=== PATIENT | male | born 1940 | race Caucasian/White ===

== ENCOUNTER 2023-01-09 04:42 | Inpatient (IN) | payer OTHER ==
[2023-01-09] VITALS (11 sets, daily range): BP systolic 78–108
[~2023-01-09] VITALS: Ht 182.9 cm; Wt 88.0 kg
--- NOTE | 2023-01-09 04:42 | NUR ---
Patient triaged and placed in ER bed 2 for evaluation. Vital signs updated, denied any acute distress at this time. Report given to ACOSTA CALLAHAN for continuity of care. Instructed to notify ED staff for any changes in condition or worsening of symptoms. Patient verbalized understanding.
--- NOTE | 2023-01-09 04:45 | NUR ---
FIRST CONTACT WITH PT. ASSESSMENT COMPLETED. AWAITING ADDITIONAL EVAL AND ORDERS.
--- NOTE | 2023-01-09 04:48 | NUR ---
ER at bedside examining patient.
[2023-01-09] MEDS ORDERED: PIPERACILLIN/TAZO 3.375 GM in NS 50 ML IV ONE (05:00)
[2023-01-09] MEDS ORDERED: ONDANSETRON HCL 4 MG/2 ML VIAL IVP ONE ×2 (05:00→05:45)
[2023-01-09] MEDS ORDERED: VANCOMYCIN HCL 1,000 MG in NS 250 ML IV ONE (05:00)
[2023-01-09] MEDS ORDERED: NACL 0.9% 2,500 ML IV ONE (05:00)
--- NOTE | 2023-01-09 05:12 | NUR ---
# 18 gauge angiocath placed to LAC. Use of asceptic technique. Opsite placed over site. Blood return noted. Blood for lab drawn from site. Flushed with 10 cc of normal saline. No evidence of infiltration noted. Patient tolerated well.
[2023-01-09 05:29] LABS: HEMOGLOBIN 13.3 g/dL (14.0-18.0); MEAN CORPUSCULAR HEMOGLOBIN 31 pg (27-31); MEAN CORPUSCULAR HGB CONC 33 % (32-36); MEAN CORPUSCULAR VOLUME 96 fL (79.0-98.0); PLATELET COUNT (AUTO) 193 K/uL (130-430); RED BLOOD CELL COUNT(AUTO) 4.28 MIL/uL (4.2-6.2); RED CELL DISTRIBUTION WIDTH 14.4 % (9.0-15.0)
[2023-01-09 05:39] LABS: ANION GAP 15 (5-15); CALCIUM 8.3 mg/dL (8.4-11.0); CHLORIDE 102 mmol/L (98-107); CREATININE 1.49 mg/dL (0.55-1.30); GLUCOSE 129 mg/dL (70-99); UREA NITROGEN, BLOOD 22 mg/dL (8-21)
[2023-01-09] MEDS ORDERED: METOCLOPRAMIDE HCL 10 MG/2 ML VIAL IVP ONE (05:45)
[2023-01-09 05:54] LABS: WHITE BLOOD COUNT (AUTO) 40.6 K/uL (4.8-10.8)
[2023-01-09 05:56] LABS: ALANINE AMINOTRANSFERASE 10 U/L (12-78); ALBUMIN 2.3 g/dL (3.4-4.8); ASPARTATE AMINOTRANSFERASE 16 U/L (10-37); LIPASE 46 U/L (73-393); TOTAL BILIRUBIN 0.9 mg/dL (0.0-1.0)
--- NOTE | 2023-01-09 06:05 | NUR ---
PT'S SON AT BEDSIDE. MD DISCUSSED CASE AND PLAN OF CARE. SON STATED HE WOULD HAVE CAREGIVER BRING LIST OF MEDICATION TO HOSPITAL BECAUSE HE DIDN'T KNOW CURRENT MEDS.
--- NOTE | 2023-01-09 06:07 | NUR ---
Patient is back from CT.
[2023-01-09] MEDS ORDERED: VANCOMYCIN HCL 1000 MG/VIAL IV ONE (06:08)
[2023-01-09] MEDS ORDERED: PIPERACILLIN/TAZOBACTAM 3.375 GM/VIAL (ZOSYN) IV ONE (06:09)
--- NOTE | 2023-01-09 06:16 | NUR ---
Dr. Nielsen is at bedside examining the patient.
[2023-01-09 06:46] LABS: BILIRUBIN,URINE 1+ (NEGATIVE); BLOOD, URINE 3+ (NEGATIVE); CLARITY/URINE CLOUDY (CLEAR); COLOR,URINE BROWN (YELLOW); GLUCOSE,URINE NEGATIVE (NEGATIVE); KETONES,URINE TRACE (NEGATIVE); LEUKOCYTE ESTERASE ,URINE 2+ (NEGATIVE); NITRITE, URINE POSITIVE (NEGATIVE); PH,URINE 5.5 (5.0-8.0); PROTEIN URINE 2+ (NEGATIVE)
--- NOTE | 2023-01-09 07:00 | NUR ---
ASSIGNMENT AND REPORT TO SINDY ZELAYA.
[2023-01-09 07:15] LABS: BACTERIA,URINE MANY /HPF (None Seen); MUCUS,URINE 1+ /LPF (None Seen); RBC,URINE >100 /HPF (0-3)
[2023-01-09 07:24] LABS: BAND % (MANUAL) 12 % (0-6); BASOPHILS % (MANUAL) 0 % (0-2); EOSINOPHILS % (MANUAL) 0 % (0-7); LYMPHOCYTES % (MANUAL) 8 % (20-46); MONOCYTES % (MANUAL) 13 % (0-11)
[2023-01-09] MEDS ORDERED: ACET325T53 PO (07:24)
[2023-01-09] MEDS ORDERED: CHOL100062 PO (07:24)
[2023-01-09] MEDS ORDERED: [UNRECOGNIZED DRUG - CODE] PO (07:24)
[2023-01-09] MEDS ORDERED: ALLO100T PO (07:24)
[2023-01-09] MEDS ORDERED: ATOR20TA64 PO (07:24)
[2023-01-09] MEDS ORDERED: SPIR25TA6 PO (07:24)
[2023-01-09] MEDS ORDERED: RIVA20TA PO (07:24)
[2023-01-09] MEDS ORDERED: TAMS-11 PO (07:24)
[2023-01-09] MEDS ORDERED: DOCU-159 PO (07:24)
[2023-01-09] MEDS ORDERED: ZINC50TA2 PO (07:24)
[2023-01-09] MEDS ORDERED: SERT25TA77 PO (07:24)
[2023-01-09] MEDS ORDERED: ACET-1172 PO (07:24)
[2023-01-09] MEDS ORDERED: DIPH50CA38 PO (07:24)
[2023-01-09] MEDS ORDERED: POTA-178 PO (07:24)
[2023-01-09] MEDS ORDERED: FURO20TA4 PO (07:24)
[2023-01-09] MEDS ORDERED: NACL 0.9% 1,000 ML IV ONE ×3 (07:30→19:30)
--- NOTE | 2023-01-09 07:32 | NUR ---
COVID AND INFLUENZA SWABS SENT TO LAB.
[2023-01-09] MEDS ORDERED: METOPROLOL TARTRATE 5 MG/5 ML VIAL IVP ONE (08:00)
--- NOTE | 2023-01-09 08:40 | NUR ---
ATTEMPTED TO PROVIDE PATIENT WATER, ABLE TO SIP, SECOND SIP, PRODUCTIVE COUGH. MD GARCIA MADE AWARE. PT MADE NPO PENDING SWALLOW EVAL.
--- NOTE | 2023-01-09 09:29 | NUR ---
DR. URBINA HAS BEEN PAGED FOR THE PAST TWO HOURS IN REGARDS FOR ADMISSION AND NO RESPONSE. PER DR. GARCIA, PAGE TOP BOTTOM ATTACHING MACHINE OPERATOR DOC FOR ADMISSION DUE TO DELAY OF CARE.
--- NOTE | 2023-01-09 09:42 | NUR ---
Admit bed requested Patient will be admitted to care of Dr. Rudy WHITTAKER. Admitted to TELEMETRY unit. Diagnosis SEPSIS, PNA, UTI Inpatient (Yes or No) YES Observation (Yes or No) NO Orientation concerns or request close to nursing station (Yes or No) NO Covid Status NEGATIVE On vent or bipap NO Isolation requirements NO Needs a sitter NO From Home (Yes or if No enter name of facility) YES Requires Dialysis (Yes or No) NO Med Rec Completed (Yes of No) YES
[2023-01-09] MEDS ORDERED: NS 500 ML IV ONE (09:45)
[2023-01-09] MEDS ORDERED: NALOXONE HCL 0.4 MG/ML AMP (NARCAN) IVP PRN ×2 (10:00)
[2023-01-09] MEDS ORDERED: MUPIROCIN 2% TOPICAL OINTMENT 22 GM NS PRN (10:00)
[2023-01-09] MEDS ORDERED: ZOLPIDEM TARTRATE 5 MG TABLET PO PRN (10:00)
[2023-01-09] MEDS ORDERED: POTASSIUM CHLORIDE 20 MEQ TAB.PRT.SR PO PRN (10:00)
[2023-01-09] MEDS ORDERED: ONDANSETRON HCL 4 MG/2 ML VIAL IVP PRN (10:00)
[2023-01-09] MEDS ORDERED: MORPHINE 2 MG/ML INJ. SYRINGE IVP PRN ×2 (10:00)
[2023-01-09] MEDS ORDERED: DOCUSATE SODIUM 100 MG CAPSULE PO PRN (10:00)
[2023-01-09] MEDS ORDERED: IPRATROPIUM/ALBUTEROL SULFATE 3 ML AMPUL.NEB (DUONEB) INH PRN (10:00)
[2023-01-09] MEDS ORDERED: MAGNESIUM SULFATE 50 ML IV PRN (10:00)
[2023-01-09] MEDS ORDERED: ACETAMINOPHEN 325 MG TABLET PO PRN ×2 (10:00→10:15)
[2023-01-09] MEDS ORDERED: LORazepam 2 MG/ML VIAL IVP PRN (10:00)
[2023-01-09] MEDS: NACL 0.9% 1,000 ML IV SCH ×3 (10:50→20:35)
--- NOTE | 2023-01-09 11:28 | NUR ---
Per family, pt's status is DNR.
--- NOTE | 2023-01-09 12:09 | NUR ---
Patient was transfered to Telemetry unit, room 102A. Son accompanied Patient to room in MST unit. Patient in stable condition. Moved to bed with 3 person assist. Oxygen at 4 lpm via NC. Report given to SINDY Carrillo.
--- NOTE | 2023-01-09 12:15 | NUR ---
admission notes: received pt from e.r. with diagnosis of Sepsis, cc were Hypotension and n/vomiting. pt will be admitted under d Sing. consults were dr yung and dr ace. pt educated on the use of calllight , tv and bed controls. will cont to monitor.
--- NOTE | 2023-01-09 12:30 | NUR ---
pt kept npo pending swallow eval.
[2023-01-09] MEDS: PIPERACILLIN/TAZO 3.375/DEX-IS 50 ML IV SCH ×2 (12:50→18:32)
--- NOTE | 2023-01-09 13:15 | NUR ---
CONSULTATION PAGED REASON FOR CONSULTATION: SEPSIS WAS CONSULT CALLED? Y PERSON WHO WAS NOTIFIED: JANET CONSULTING PHYSICIAN: KARLA MAURICE UTILITY GELATIN MAKER SPECIALTY: CARDIO UTILITY GELATIN MAKER PHONE NUMBER: [phone] REQUESTING PHYSICIAN: DR.SINGHLOLIS
--- NOTE | 2023-01-09 13:34 | NUR ---
CONSULTATION PAGED REASON FOR CONSULTATION: SEPSIS WAS CONSULT CALLED? Y PERSON WHO WAS NOTIFIED: HARPAL CONSULTING PHYSICIAN: LABORER WRECKING AND SALVAGING MUD TRUCKER SPECIALTY: PULMONARY MUD TRUCKER PHONE NUMBER: [phone] [facility]ICIAN[facility]
--- NOTE | 2023-01-09 16:42 | NUR ---
PT'S BP LOW AT 83/51, 89/64 HR 103, REPORTED BP TO DR MOREAU, NEW ORDERS RECEIVED
[2023-01-09] MEDS ORDERED: ALBUMIN HUMAN 25% 100 ML IV ONE (16:45)
--- NOTE | 2023-01-09 17:09 | NUR ---
ST EVALUATION COMPLETED. ST TX NOT INDICATED AT THIS TIME. RECOMMEND PO DIET OF PUREE/NECTAR THICK LIQUIDS. 1:1 FEEDER AND FULL ASPIRATION PRECAUTIONS.
--- NOTE | 2023-01-09 18:44 | NUR ---
pt's bp still low at 89/64 hr 112
--- NOTE | 2023-01-09 18:47 | NUR ---
PT'S SBP IS 94 AT THIS TIME. WILL ENDORSED TO NIGHT NURSE.
--- NOTE | 2023-01-09 19:30 | NUR ---
OPENING NOTE/LOW BP Pt is lying in bed, eyes closed. Breathing unlabored. Pt's initial BP on assessment 78/46, 78/51. Dr Alcocer at bedside, ordered 1L NS bolus, patterson catheter insertion and transfer to ICU. Dr Alcocer called and informed pt's son
--- NOTE | 2023-01-09 19:40 | NUR ---
CODE STATUS Pt code status is now DNR. Code status form signed by Dr Alcocer and RN, placed in pt's chart
--- NOTE | 2023-01-09 19:54 | NUR ---
SPOKE W/ DR WHITTAKER Informed of order to transfer to ICU per Dr Alcocer. No new orders received.
--- NOTE | 2023-01-09 20:00 | NUR ---
PATTERSON CATHETER INSERTION #16 FR patterson catheter inserted with use of sterile technique. Immediate return of blood tinged urine noted. Bedside drainage bag placed below level of bladder.
[2023-01-09 20:18] LABS: HEMATOCRIT 36.2 % (36-54); HEMOGLOBIN 11.7 g/dL (14.0-18.0); MEAN CORPUSCULAR HEMOGLOBIN 31 pg (27-31); MEAN CORPUSCULAR HGB CONC 32 % (32-36); MEAN CORPUSCULAR VOLUME 97 fL (79.0-98.0); PLATELET COUNT (AUTO) 145 K/uL (130-430); RED BLOOD CELL COUNT(AUTO) 3.75 MIL/uL (4.2-6.2); RED CELL DISTRIBUTION WIDTH 14.5 % (9.0-15.0)
[2023-01-09 20:21] LABS: WHITE BLOOD COUNT (AUTO) 25.3 K/uL (4.8-10.8)
[2023-01-09 20:29] LABS: INR 1.2 (0.80-1.20); PROTHROMBIN TIME 12.6 SECS (9.5-12.5)
[2023-01-09 20:30] LABS: ANION GAP 9 (5-15); CALCIUM 7.5 mg/dL (8.4-11.0); CHLORIDE 107 mmol/L (98-107); CREATININE 1.22 mg/dL (0.55-1.30); GLUCOSE 99 mg/dL (70-99); UREA NITROGEN, BLOOD 22 mg/dL (8-21)
[2023-01-09 20:38] LABS: BAND % (MANUAL) 4 % (0-6); BASOPHILS % (MANUAL) 0 % (0-2); EOSINOPHILS % (MANUAL) 0 % (0-7); LYMPHOCYTES % (MANUAL) 8 % (20-46); MONOCYTES % (MANUAL) 16 % (0-11)
[2023-01-09 20:42] LABS: ALANINE AMINOTRANSFERASE 10 U/L (12-78); ALBUMIN 2.4 g/dL (3.4-4.8); AMYLASE 22 U/L (0-100); ASPARTATE AMINOTRANSFERASE 14 U/L (10-37); CHOLESTEROL 50 mg/dL (<200); FREE T4 (FREE THYROXINE) 0.8 ng/dL (0.6-1.6); HDL CHOLESTEROL 39 mg/dL (>45); LIPASE 32 U/L (73-393); THYROID STIMULATING HORMONE 1.95 uIu/mL (0.34-4.82); TOTAL BILIRUBIN 0.7 mg/dL (0.0-1.0); TRIGLYCERIDES 35 mg/dL (30-150)
--- NOTE | 2023-01-09 20:50 | NUR ---
TRANSFER TO ICU Pt was transfered to ICU. BP 92/50. Report given to MAINTENANCE OPERATOR
--- NOTE | 2023-01-09 21:00 | NUR ---
Received patient transferred from [facility] after Dr Alcocer ordered patient to be transferred to ICU. Patient is DNR, received via bed after patient became hypotensive and with orders to start Levophed. Patient's SBP 82. O2 sats in 5L NC 92%. will continue to monitor.
[2023-01-09] MEDS: LINEZOLID 300 ML IV SCH (22:49)
[2023-01-10] VITALS (20 sets, daily range): BP systolic 84–144
[2023-01-10] MEDS: PIPERACILLIN/TAZO 3.375/DEX-IS 50 ML IV SCH ×5 (00:27→23:36)
[2023-01-10 05:24] LABS: ANION GAP 10 (5-15); CALCIUM 7.5 mg/dL (8.4-11.0); CHLORIDE 107 mmol/L (98-107); CREATININE 1.05 mg/dL (0.55-1.30); GLUCOSE 111 mg/dL (70-99); LIPASE 37 U/L (73-393); UREA NITROGEN, BLOOD 20 mg/dL (8-21)
[2023-01-10 05:28] LABS: BASOPHILS % (AUTO) 0.2 % (0.0-2.0); EOSINOPHILS # (AUTO) 0.2 K/uL (0.0-0.4); EOSINOPHILS % (AUTO) 0.9 % (0.0-4.0); HEMOGLOBIN 11.4 g/dL (14.0-18.0); LYMPHOCYTES # (AUTO) 1.3 K/uL (1.0-5.5); MEAN CORPUSCULAR HEMOGLOBIN 32 pg (27-31); MEAN CORPUSCULAR HGB CONC 33 % (32-36); MEAN CORPUSCULAR VOLUME 97 fL (79.0-98.0); MONOCYTES # (AUTO) 3.5 K/uL (0.0-1.0); MONOCYTES % (AUTO) 19.4 % (1.7-9.3); NEUTROPHILS # (AUTO) 13.2 K/uL (1.8-7.7); NEUTROPHILS % (AUTO) 72.5 % (40.0-70.0); PLATELET COUNT (AUTO) 142 K/uL (130-430); RED BLOOD CELL COUNT(AUTO) 3.62 MIL/uL (4.2-6.2); RED CELL DISTRIBUTION WIDTH 14.4 % (9.0-15.0); WHITE BLOOD COUNT (AUTO) 18.2 K/uL (4.8-10.8)
[2023-01-10] MEDS: NACL 0.9% 1,000 ML IV SCH ×2 (06:00→16:00)
--- NOTE | 2023-01-10 07:10 | NUR ---
Opening Received report on pt. Pt awake, oriented x2/3, answers simple questions, but not very verbal. Pt in no signs of distress, indicated no pain, on 5L nasal cannula. Peripheral IV sites intact, patent, with IVF and levohped drip. Scanlon in place with urine draining to gravity. Pt's son Cr at bedside.
--- NOTE | 2023-01-10 07:45 | NUR ---
Patient off unit to CT with continuous O2 and monitoring. Accompanied by RN and radiology interventional physician.
--- NOTE | 2023-01-10 08:15 | NUR ---
Patient return to unit from CT, situated to room. Provided with breakfast tray, patient's son at bedside.
--- NOTE | 2023-01-10 08:30 | NUR ---
Dr. Portillo rounding on pt. New orders made. Consent signed for PICC line by Dr. Portillo and pt's son Cr.
[2023-01-10] MEDS: RIVAROXABAN 10 MG TABLET PO SCH ×2 (09:00→14:00)
[2023-01-10] MEDS: TAMSULOSIN HCL 0.4 MG CAP PO SCH ×3 (09:00→14:00)
[2023-01-10] MEDS: ALLOPURINOL 100 MG TABLET (ZYLOPRIM) PO SCH ×3 (09:00→14:00)
[2023-01-10] MEDS: SERTRALINE HCL 50 MG TABLET PO SCH ×3 (09:00→14:00)
[2023-01-10 09:08] LABS: INR 1.1 (0.80-1.20); PROTHROMBIN TIME 11.6 SECS (9.5-12.5)
[2023-01-10] MEDS: LINEZOLID 300 ML IV SCH ×2 (09:45→20:55)
--- NOTE | 2023-01-10 10:00 | NUR ---
Attempted to give PO meds, but pt was drowsy after breakfast. Equal chest rise and fall, no signs of distress noted. Pt arousable but unable to stay awake for med pass. Will attempt later.
--- NOTE | 2023-01-10 12:00 | NUR ---
Pt provided with lunch tray, arousable but still drowsy, equal chest rise and fall, no signs of acute distress noted. Pt also states he wants rootbeer and refuses meds.
[2023-01-10] MEDS: NOREPINEPHRINE BITARTRATE 4 MG in D5W 246 ML IV PRN (12:47)
--- NOTE | 2023-01-10 14:00 | NUR ---
Pt awake and alert, states he is able to take his PO meds. Tolerated well.
--- NOTE | 2023-01-10 16:30 | NUR ---
PICC line nurse at bedside for procedure
--- NOTE | 2023-01-10 18:57 | NUR ---
Closing Pt asleep, arousable, equal chest rise and fall. Family members present at bedside, aware pt has been withdrawn. Pt remains on 5L nasal cannula, no signs of distress. Remains on levophed drip and IV fluids, infusing to PICC line. IV sites intact, patent, locked. Scanlon in place with urine draining to gravity. Will endorse plan of care to RN. Addendum: 01/11/23 at 1101 by Luis F Nix RN sputum sample contaminated with saliva, will recollect new sample. pt is unable to cough up. will try later
[2023-01-11] VITALS (25 sets, daily range): BP systolic 83–118
[2023-01-11] MEDS: NACL 0.9% 1,000 ML IV SCH ×4 (02:00→22:08)
[2023-01-11 06:05] LABS: BASOPHILS # (AUTO) 0.1 K/uL (0.0-0.2); BASOPHILS % (AUTO) 0.6 % (0.0-2.0); EOSINOPHILS # (AUTO) 0.3 K/uL (0.0-0.4); EOSINOPHILS % (AUTO) 3.5 % (0.0-4.0); HEMATOCRIT 33.2 % (36-54); HEMOGLOBIN 10.9 g/dL (14.0-18.0); LYMPHOCYTES # (AUTO) 1.1 K/uL (1.0-5.5); LYMPHOCYTES % (AUTO) 14.8 % (20.5-51.5); MEAN CORPUSCULAR HEMOGLOBIN 32 pg (27-31); MEAN CORPUSCULAR HGB CONC 33 % (32-36); MEAN CORPUSCULAR VOLUME 97 fL (79.0-98.0); MONOCYTES # (AUTO) 1.4 K/uL (0.0-1.0); MONOCYTES % (AUTO) 17.9 % (1.7-9.3); NEUTROPHILS # (AUTO) 4.9 K/uL (1.8-7.7); NEUTROPHILS % (AUTO) 63.2 % (40.0-70.0); PLATELET COUNT (AUTO) 125 K/uL (130-430); RED BLOOD CELL COUNT(AUTO) 3.44 MIL/uL (4.2-6.2); RED CELL DISTRIBUTION WIDTH 14.6 % (9.0-15.0); WHITE BLOOD COUNT (AUTO) 7.7 K/uL (4.8-10.8)
[2023-01-11 06:23] LABS: ANION GAP 9 (5-15); CALCIUM 7.1 mg/dL (8.4-11.0); CHLORIDE 106 mmol/L (98-107); CREATININE 0.87 mg/dL (0.55-1.30); GLUCOSE 77 mg/dL (70-99); UREA NITROGEN, BLOOD 12 mg/dL (8-21)
[2023-01-11] MEDS: PIPERACILLIN/TAZO 3.375/DEX-IS 50 ML IV SCH ×3 (06:24→18:39)
[2023-01-11] MEDS: TAMSULOSIN HCL 0.4 MG CAP PO SCH ×2 (09:00→09:30)
[2023-01-11] MEDS: SERTRALINE HCL 50 MG TABLET PO SCH ×2 (09:00→09:31)
[2023-01-11] MEDS: LINEZOLID 300 ML IV SCH (09:31)
[2023-01-11] MEDS: RIVAROXABAN 10 MG TABLET PO SCH (09:33)
[2023-01-11] MEDS: ALLOPURINOL 100 MG TABLET (ZYLOPRIM) PO SCH (09:34)
[2023-01-11] MEDS ORDERED: NS 250 ML IV ONE (09:45)
[2023-01-11] MEDS: POTASSIUM CHLORIDE 20 MEQ/PKT PACKET PO ONE ×2 (09:45→10:26)
[2023-01-11] MEDS: ALBUMIN HUMAN 25% 50 ML IV SCH ×3 (10:27→17:15)
--- NOTE | 2023-01-11 11:02 | NUR ---
per lab, sputum sample is contaminated with saliva, will recollect. pt is unable to cough up now, will try later.
[2023-01-11] MEDS: MIDODRINE HCL 5 MG TABLET (PROAMATINE) PO ONE ×2 (12:00→12:49)
--- NOTE | 2023-01-11 12:30 | NUR ---
pt has been refusing PO medication, educated pt the risk of noncompliance to medication, pt demonstrated understanding. Dr. Portillo is aware.
[2023-01-11] MEDS: NOREPINEPHRINE BITARTRATE 4 MG in D5W 246 ML IV PRN (13:38)
[2023-01-11] MEDS ORDERED: POTASSIUM CHLORIDE 20 MEQ in NS 250 ML IV ONE (14:00)
[2023-01-11] MEDS ORDERED: POTASSIUM CHLORIDE IV ONE (14:30)
[2023-01-11] MEDS: MIDODRINE HCL 5 MG TABLET (PROAMATINE) PO SCH ×3 (15:00→20:48)
[2023-01-11] MEDS ORDERED: CALCIUM GLUCONATE 2 GM in NS 100 ML IV ONE (15:15)
[2023-01-11] MEDS ORDERED: CALCIUM GLUCONATE 1 GM/10 ML VIAL ONE (15:33)
[2023-01-12] VITALS (21 sets, daily range): BP systolic 85–105
[2023-01-12] MEDS: PIPERACILLIN/TAZO 3.375/DEX-IS 50 ML IV SCH ×4 (00:21→17:51)
[2023-01-12] MEDS: NACL 0.9% 1,000 ML IV SCH ×3 (05:23→21:14)
[2023-01-12 06:19] LABS: BASOPHILS # (AUTO) 0.1 K/uL (0.0-0.2); EOSINOPHILS # (AUTO) 0.3 K/uL (0.0-0.4); EOSINOPHILS % (AUTO) 4.4 % (0.0-4.0); HEMATOCRIT 33.8 % (36-54); HEMOGLOBIN 11.2 g/dL (14.0-18.0); LYMPHOCYTES # (AUTO) 1.1 K/uL (1.0-5.5); LYMPHOCYTES % (AUTO) 18.9 % (20.5-51.5); MEAN CORPUSCULAR HEMOGLOBIN 32 pg (27-31); MEAN CORPUSCULAR HGB CONC 33 % (32-36); MEAN CORPUSCULAR VOLUME 97 fL (79.0-98.0); MONOCYTES # (AUTO) 0.9 K/uL (0.0-1.0); MONOCYTES % (AUTO) 14.4 % (1.7-9.3); NEUTROPHILS # (AUTO) 3.7 K/uL (1.8-7.7); NEUTROPHILS % (AUTO) 61.3 % (40.0-70.0); PLATELET COUNT (AUTO) 111 K/uL (130-430); RED BLOOD CELL COUNT(AUTO) 3.49 MIL/uL (4.2-6.2); RED CELL DISTRIBUTION WIDTH 14.7 % (9.0-15.0); WHITE BLOOD COUNT (AUTO) 6.1 K/uL (4.8-10.8)
[2023-01-12 06:45] LABS: ANION GAP 10 (5-15); CALCIUM 7.6 mg/dL (8.4-11.0); CHLORIDE 108 mmol/L (98-107); CREATININE 0.81 mg/dL (0.55-1.30); GLUCOSE 75 mg/dL (70-99); UREA NITROGEN, BLOOD 8 mg/dL (8-21)
--- NOTE | 2023-01-12 07:25 | NUR ---
SBAR REPORT RECEIVED FROM [place] CALLAHAN, ALL CARES ASSUMED. PT RESTING IN BED WITH EYES OPEN. 5L NC O2. LEVOPHED 2MCG/KG/MIN INFUSING TO PEREZ PICC LINE. GABRIEL CATHETER TO GRAVITY. HOB ELEVATED 30 DEGREES. BED IN LOW AND LOCKED POSITION, CALL LIGHT WITHIN REACH.
[2023-01-12] MEDS: SERTRALINE HCL 50 MG TABLET PO SCH (08:13)
[2023-01-12] MEDS: TAMSULOSIN HCL 0.4 MG CAP PO SCH (08:13)
[2023-01-12] MEDS: MIDODRINE HCL 5 MG TABLET (PROAMATINE) PO SCH ×3 (08:14→21:13)
[2023-01-12] MEDS: ALLOPURINOL 100 MG TABLET (ZYLOPRIM) PO SCH (08:14)
[2023-01-12] MEDS: RIVAROXABAN 10 MG TABLET PO SCH (08:15)
--- NOTE | 2023-01-12 11:30 | NUR ---
DR WHITTAKER ROUNDING AT BEDSIDE. ORDER RECEIVED TO ADVANCE DIET TOLERATED. ANTICIPATE TRANSFER IF PT BLOOD PRESSURE REMAINS STABLE AFTER TURNING OFF LEVOPHED.
--- NOTE | 2023-01-12 16:45 | NUR ---
SPEECH THERAPIST AT BEDSIDE FOR SWALLOW EVAL.
--- NOTE | 2023-01-12 16:53 | NUR ---
ST EVALUATION COMPLETED. ST TX NOT INDICATED AT THIS TIME. RECOMMEND PO DIET OF MECHANICAL SOFT FINELY CHOPPED AND THIN LIQUIDS. 1:1 ASSISTANCE AND FULL ASPIRATION PRECAUTIONS.
--- NOTE | 2023-01-12 17:00 | NUR ---
Dietitian Recommendations * Puree, NTL, Ensure HP TID (ONS comes w/ standard diet order; yields 1050 kcals and 60 g PRO daily * Consider appetite stimulant (Megace) * If pt's PO intake does not improve, within 1-3 days, consider alternative means of nutrition - Nutrition Assessment completed by Nnia Hughes, Diabetes Education Coordinator Co-Signed By: Karen Sun MS, RD Please refer to Nutrition Assessment for details.
--- NOTE | 2023-01-12 17:15 | NUR ---
PAGED DR WHITTAKER REGARDING ST RECOMMENDATIONS. RECEIVED ORDER FOR [facility] SOFT, THIN LIQUID DIET. NO ORDER FOR APPETITE STIMULANT AT THIS TIME. TELEMETRY TRANSFER ORDER RECEIVED.
--- NOTE | 2023-01-12 18:35 | NUR ---
PT TRANSFERRED TO TELEMETRY, 114-A. BED IN LOW AND LOCKED POSITION, CALL LIGHT WITHIN REACH. SYSTEMS QA ANALYST ON PT. REPORT GIVEN TO MARK CALLAHAN, ALL CARES ENDORSED.
--- NOTE | 2023-01-12 18:50 | NUR ---
RECEIVEDPTFROMICUC/O SINDY RAINES. VITALS WNL.
--- NOTE | 2023-01-12 19:35 | NUR ---
ROUNDS PATIENT IN BED, AWAKE, CONFUSED, NOT IN DISTRESS,VITALS STABLE.DENIES ANY PAIN AND DISCOMFORT AT THIS TIME. ASSESSMENT DONE AND DOCUMENTED. SEE FLOWSHEET.NEEDS ATTENDED TO. CALL LIGHT PLACED WITHIN REACH.
[2023-01-13] MEDS: PIPERACILLIN/TAZO 3.375/DEX-IS 50 ML IV SCH ×2 (00:07→05:17)
--- NOTE | 2023-01-13 00:12 | NUR ---
PATIENT RESTING: Patient resting quietly. No acute distress noted. Vital signs within normal range.
[2023-01-13 00:13] VITALS: BP_SYST 96
[2023-01-13] MEDS: NACL 0.9% 1,000 ML IV SCH ×2 (03:11→11:05)
[2023-01-13 05:23] LABS: BASOPHILS % (AUTO) 0.7 % (0.0-2.0); EOSINOPHILS # (AUTO) 0.3 K/uL (0.0-0.4); HEMATOCRIT 37.1 % (36-54); HEMOGLOBIN 12.1 g/dL (14.0-18.0); LYMPHOCYTES # (AUTO) 1.4 K/uL (1.0-5.5); LYMPHOCYTES % (AUTO) 20.5 % (20.5-51.5); MEAN CORPUSCULAR HEMOGLOBIN 32 pg (27-31); MEAN CORPUSCULAR HGB CONC 33 % (32-36); MEAN CORPUSCULAR VOLUME 98 fL (79.0-98.0); MONOCYTES # (AUTO) 1.1 K/uL (0.0-1.0); MONOCYTES % (AUTO) 16.1 % (1.7-9.3); NEUTROPHILS # (AUTO) 3.8 K/uL (1.8-7.7); NEUTROPHILS % (AUTO) 57.7 % (40.0-70.0); PLATELET COUNT (AUTO) 119 K/uL (130-430); RED BLOOD CELL COUNT(AUTO) 3.79 MIL/uL (4.2-6.2); RED CELL DISTRIBUTION WIDTH 14.9 % (9.0-15.0); WHITE BLOOD COUNT (AUTO) 6.7 K/uL (4.8-10.8)
[2023-01-13 05:58] LABS: ANION GAP 8 (5-15); CALCIUM 8.3 mg/dL (8.4-11.0); CHLORIDE 108 mmol/L (98-107); CREATININE 0.79 mg/dL (0.55-1.30); GLUCOSE 76 mg/dL (70-99); UREA NITROGEN, BLOOD 8 mg/dL (8-21)
--- NOTE | 2023-01-13 06:48 | NUR ---
CLOSING NOTES PATIENT AWAKE, VITALS STABLE, NO COMPLAINTS AT THIS TIME.ALL NEEDS ATTENDED TO. SAFETY MEASURES MAINTAINED. CALL LIGHT PLACED WITHIN REACH.
[2023-01-13 07:00] VITALS: BP_SYST 95
[2023-01-13 07:41] VITALS: BP_SYST 95
[2023-01-13] MEDS: ALLOPURINOL 100 MG TABLET (ZYLOPRIM) PO SCH (08:21)
[2023-01-13] MEDS: SERTRALINE HCL 50 MG TABLET PO SCH (08:22)
[2023-01-13] MEDS: TAMSULOSIN HCL 0.4 MG CAP PO SCH (08:23)
[2023-01-13] MEDS: RIVAROXABAN 10 MG TABLET PO SCH (08:24)
[2023-01-13] MEDS: MIDODRINE HCL 5 MG TABLET (PROAMATINE) PO SCH ×2 (08:26→15:06)
[2023-01-13 11:40] VITALS: BP_SYST 99
[2023-01-13] MEDS ORDERED: SULF1TAB47 PO ×2 (12:07)
[2023-01-13] MEDS ORDERED: SULF1TAB48 PO (12:12)
--- NOTE | 2023-01-13 13:08 | NUR ---
Referral for Home Health sent to [facility] phone # [phone]
--- NOTE | 2023-01-13 13:19 | NUR ---
Control Systems Eng PARKING ENFORCEMENT OFFICER called and spoke to pts. son , , to discuss a transportation resource. Pt. can go home via [employer] -[phone] and they will take his credit card over the phone. PARKING ENFORCEMENT OFFICER asked son to call back with a clam picker time so she can share this info with the Rn and she will prepare the paperwork and get pt. ready for discharge. Addendum: 01/13/23 at 1345 by Patito Malik MSW Control Systems Eng PARKING ENFORCEMENT OFFICER recevied a call back from Юл[place] who stated [employer] transportation will be picking up pt. at 6:30, and charged him $220. PARKING ENFORCEMENT OFFICER notified Flor of the above info. PARKING ENFORCEMENT OFFICER will remain available as needed.
--- NOTE | 2023-01-13 14:58 | NUR ---
Wound Evaluation: Wound Consult ordered for Low Apolinar Score. Patient evaluated for a low Apolinar score of 16. Patient was awake, confused, and received in a [place] Bed with an IsoFlex ROLANDO mattress. Patient needs assist to turn in bed. Skin assessment: 1. Sacral/Buttocks area: IAD with erythema. Skin is intact. Recommend: Cleanse involved areas with mild soap and water. Gently pat dry. Apply moisture barrier cream to involved areas. Perform site care 4 times daily and as needed for soiling. 2. Scrotum: Recommend: Cleanse involved areas with mild soap and water. Gently pat dry. Apply moisture barrier cream to involved areas. Perform site care 4 times daily and as needed for soiling. Recommend: Reposition patient side to side only every 2 hours with pillow support. Elevate, off-load and float bilateral heels with pillows. Offload pressure areas with pillows for pressure re-distribution. Perform skin care and monitor skin integrity Q shift. Use moisture barrier cream on moisture susceptible areas QID and PRN for soiling. Maintain patient on a low air-loss mattress and initiate low air loss therapy by adding a pump to the mattress.
[2023-01-13 15:09] VITALS: BP_SYST 100
--- NOTE | 2023-01-13 17:00 | NUR ---
Patient accepted for care by [facility] [phone]
[2023-01-13 17:10] VITALS: BP_SYST 100
--- NOTE | 2023-01-13 19:05 | NUR ---
Pt discharged to home by [facility]. PEREZ PICC line discontinued and intact. RFA PIV removed and intact. Dr. Portillo did not call in pt's Midodrine prescription of 5 mg TID. Paged him. Dr. Gandhi covering for Dr. Portillo now and said he will call the prescription in tomorrow. Notified pt's son Cr at [phone]. Pt patterson d/c at 1400 and voided before discharge. 2L oxygen removed and pt saturating in the 90s. [facility] arranged by case management.
[2023-01-14] MEDS ORDERED: MIDO5TAB4 PO (10:19)
== END 2023-01-13 18:40 | disposition home health service (06) | DRG 871 ==
LOC: SED 04:42 → STU 09:38 → SIC 22:28 → STU 01-12 18:35
PROVIDERS: ADMIT General Practice; ATTEND General Practice
DX: A41.9 Sepsis, unspecified organism (principal); J69.0 Pneumonitis due to inhalation of food and vomit; J96.01 Acute respiratory failure with hypoxia; R65.21 Severe sepsis with septic shock; R53.2 Functional quadriplegia; I48.20 Chronic atrial fibrillation, unspecified; N13.6 Pyonephrosis; N17.9 Acute kidney failure, unspecified; R64 Cachexia; A04.72 Enterocolitis due to Clostridium difficile, not specified as recurrent; N39.0 Urinary tract infection, site not specified; F32.A Depression, unspecified; E78.5 Hyperlipidemia, unspecified; Z96.659 Presence of unspecified artificial knee joint; M10.9 Gout, unspecified; L89.159 Pressure ulcer of sacral region, unspecified stage; Z66 Do not resuscitate; Z20.822 Contact with and (suspected) exposure to COVID-19; G89.29 Other chronic pain; M54.9 Dorsalgia, unspecified; E86.0 Dehydration; R62.7 Adult failure to thrive; I11.0 Hypertensive heart disease with heart failure; I50.9 Heart failure, unspecified; Z74.01 Bed confinement status; Z85.46 Personal history of malignant neoplasm of prostate; Z86.711 Personal history of pulmonary embolism; Z87.891 Personal history of nicotine dependence; Z91.199 Patient's noncompliance with other medical treatment and regimen due to unspecified reason; Z68.26 Body mass index [BMI] 26.0-26.9, adult; Z91.148 Patient's other noncompliance with medication regimen for other reason; B96.20 Unspecified Escherichia coli [E. coli] as the cause of diseases classified elsewhere
CPT/HCPCS: 36415; 36600; 71045; 71250-TC; 76376; 80048; 80053; 80061; 81000; 82150; 82803; 83037; 83605; 83690; 83735; 83880; 84439; 84443; 84484; 85007; 85025; 85027; 85610-TC; 85730-TC; 87040; 87070-TC; 87081; 87086; 87205-TC; 92610-GN; 93005; 94640; 94760; 96361; 96365; 96367; 96375; 99291; G0378; J0610; J0696; J2020; J2405; J2543; J2765; J3370; J3480; J7060; P9046